=== PATIENT | female | born 1950 | race Caucasian/White ===

== ENCOUNTER 2019-01-27 12:40 | Emergency (ER) | payer OTHER ==
[~2019-01-27] VITALS: Ht 162.6 cm; Wt 81.6 kg
[2019-01-27] MEDS ORDERED: NIFE60TA3 (13:21)
[2019-01-27] MEDS ORDERED: TOPROL XL25 M1 (13:22)
[2019-01-27] MEDS ORDERED: LASIX20 MG (13:22)
[2019-01-27] MEDS ORDERED: ATACAND32 MG (13:22)
[2019-01-27] MEDS ORDERED: DIALYVITE 800-1 EACH (13:23)
[2019-01-27] MEDS ORDERED: METOTREXATO PO (13:26)
== END 2019-01-27 22:02 | disposition home or self-care (01) ==
LOC: ER 12:40
DX: J40 Bronchitis, not specified as acute or chronic (principal)

== ENCOUNTER 2019-05-28 15:05 | Emergency (ER) | payer OTHER ==
[~2019-05-28] VITALS: Ht 162.6 cm; Wt 80.7 kg
[~2019-05-28 15:05] MED LIST: ATACAND32 MG; DIALYVITE 800-1 EACH; LASIX20 MG; METOTREXATO PO; NIFE60TA3; TOPROL XL25 M1
[2019-05-28] MEDS ORDERED: MEDROLPACK PO (18:05)
[2019-05-28] MEDS ORDERED: TUSNEL LIQUID178 ML PO (18:05)
[2019-05-28] MEDS ORDERED: ZITHROMAX500 MG PO (18:05)
== END 2019-05-28 18:35 | disposition home or self-care (01) ==
LOC: ER 15:05
DX: J06.9 Acute upper respiratory infection, unspecified (principal)